=== PATIENT | male | born 1970 | race Caucasian/White ===

== ENCOUNTER 2017-01-23 11:01 | Emergency (ER) | payer OTHER ==
[~2017-01-23] VITALS: Ht 177.8 cm; Wt 94.3 kg
[2017-01-23 11:08] VITALS: BP 146/92
[2017-01-23] MEDS ORDERED: LIPITOR10 MG PO (11:12)
--- NOTE | 2017-01-23 11:15 | NUR ---
PT AMBULATED TO BED 6
--- NOTE | 2017-01-23 11:29 | NUR ---
46/M TO ED WITH C/O LAC TO LEFT HAND FINGER 2 LAST NIGHT AT 2230. PAIN 12/31. PT STATES HE WAS CUTTING A STEAK. BLEEDING UNDER CONTROL. LUNGS CLEAR BILAT. HR EVEN AND REGULAR. AAOX4. VSS. NO SIGNS OF DISTRESS.
[2017-01-23] MEDS ORDERED: LIDOCAINE 1% ED 50 ML ONE (12:10)
[2017-01-23] MEDS ORDERED: BACITRACIN OINT 500 UNITS/GM PKT TP ONE (12:14)
[2017-01-23 12:48] VITALS: BP 146/92
== END 2017-01-23 12:48 | disposition home or self-care (01) ==
LOC: MED 11:01
DX: S61.211A Laceration without foreign body of left index finger without damage to nail, initial encounter (principal); Z79.899 Other long term (current) drug therapy; W26.0XXA Contact with knife, initial encounter; Y93.G3 Activity, cooking and baking; Y92.89 Other specified places as the place of occurrence of the external cause; Y99.8 Other external cause status
CPT/HCPCS: 12001; 99283; J2001